=== PATIENT | female | born 1965 | race Caucasian/White ===

== ENCOUNTER 2018-08-14 15:19 | Emergency (ER) | payer BC, SELFPAY ==
[2018-08-14 15:25] VITALS: BP 151/90; PULSE 88; RESP 15; TEMP 36.6; O2SAT 98
--- NOTE | 2018-08-14 15:59 | ED.GENADUL_ITS ---
Discharge Plan Disposition Patient Disposition: HOME Condition: Good Discharge Details Chief Complaint: Laceration Clinical Impression: Laceration Primary Care Provider: Abdifatah Ritter ED Provider: Shaka Moreau Home Meds and New Rx's Prescriptions: New levofloxacin 750 mg tablet 750 mg PO DAILY Qty: 7 RF: 0 No Action losartan [Cozaar] 50 MG tablet 50 mg PO DAILY Qty: 90 RF: 3 amlodipine 5 MG tablet 5 mg PO DAILY Qty: 90 RF: 4 fvjumtaqecrt-hxmk-jptwh acid [Daily Multiple] 1 EACH tablet 1 tab-cap PO DAILY RF: 0 Discharge Instructions Instructions: Laceration (ED), Care For Your Absorbable Stitches (ED) Additional Instructions: If you notice any worsening of your symptoms, any pain in your tendons, pain in her joints, or any new symptoms such as vomiting, diarrhea, fever, chills, shortness of breath, chest pain, numbness, weakness, or fainting , please return immediately to the emergency department for reevaluation. If you noticed the pain in your tendons or joints please take stop taking the antibiotic and please do not perform any vigorous activity while on this antibiotic please follow up with your primary care provider as soon as possible for reassessment and reevaluation. As always, it was a pleasure participating in your medical care today. Referrals: Abdifatah Ritter, [Primary Care Provider] - Medical Decision Making This is a 52-year-old female who presents for laceration on her right foot just proximal to the webspace between the second and third digits. No evidence of tendon involvement normal movement, normal sensation, brisk capillary refill. No significant pain. The patient did have this laceration caused by a drill bit which was clean however it went through her shoe and her sock. No evidence of foreign body on exam under evaluation. I discussed with the patient potential x-rays for evaluation of foreign body, the patient does not want any additional x-rays or imaging at this time. She does assure me that it was a clean bit, no kassy parts, no other fragments. The patient's tetanus shot is up-to-date. The area was anesthetized with 2% lidocaine, 4 cc total. It was then irrigated with copious amounts of high-pressure saline, then scrubbed with chlorhexidine scrub. 3 simple interrupted sutures were placed, the patient tolerated this well. Because the bit went through a shoe and sock I do feel that antibiotics with gram-negative coverage are indicated for potential pseudomonas. Will start the patient on Levaquin. I had a long discussion with her regarding red flags which to return, including signs or symptoms concerning for tendon injury damage or pain secondary to the Levaquin. Patient understands. The absorbable sutures were placed, and will not need removal. We did recommend close follow-up with her PCP or the emergency department for wound reevaluation. I have extensively reviewed the treatment plan and discharge instructions with the patient. I have addressed all patient concerns at this time. The patient was made aware of what symptoms to monitor for that would warrant a return to the emergency department. Discussed the plan with the patient, they demonstrate verbal understanding and agreement with our assessment and plan at this time. Procedure: Suture Patient was positioned appropriately, 4cc lidocaine was used as a local anesthetic. Copious amounts of high-pressure normal saline were used for irrigation. Patient was sterile draped with wound exposed. 4-0 Vicryl were placed with 3 simple interrupted sutures were placed with good approximation. Wound dressed with <bacitracin/ sterile gauze>. Estimated Blood Loss: 0 ml The patient tolerated the procedure well and there were no complications. HPI General Date/Time Provider Initiated Documentation: 08/14/18 15:55 . HPI Narrative: This is a 52-year-old female with a past medical history of hypertension, and a past surgical history of a tubal ligation and cholecystectomy, who presents today for a laceration. Patient states that she was wearing a shoe, sock, when her dropped a very clean and unused drill bit down, it punctured through her shoe and sock, and lacerated the space between the second and third toe just proximal to the webspace. This is 30 minutes prior to arrival. She noticed a notable amount of bleeding, and she bled into her shoe and sock. She denies any significant numbness tingling or pain. Her tetanus is up-to-date from her last shot in 2012. She denies any allergies. She denies diabetes. She has no other complaints at this time. She denies any IV or illicit drug use. She denies any pertinent family history Related Data Home Medications Medication Instructions Recorded Confirmed amlodipine 5 mg PO DAILY #90 tab-cap 01/19/18 08/14/18 losartan [Cozaar] 50 mg PO DAILY #90 tab-cap 01/19/18 08/14/18 zkdcqmitdiun-[id number] acid 1 tab-cap PO DAILY tab-cap 06/15/18 08/14/18 [Daily Multiple Tablet] levofloxacin 750 mg PO DAILY #7 tab 08/14/18 Previous Rx's Medication Instructions Recorded amlodipine 5 mg PO DAILY #90 tab-cap 01/19/18 losartan [Cozaar] 50 mg PO DAILY #90 tab-cap 01/19/18 levofloxacin 750 mg PO DAILY #7 tab 08/14/18 Allergies Allergy/AdvReac Type Severity Reaction Status Date / Time benzonatate AdvReac Mild UPPER BODY Unverified 08/14/18 15:30 NUMBNESS lisinopril AdvReac Unknown COUGH Unverified 08/14/18 15:30 General Stated Complaint: Laceration MACK: 4 Review of Systems Review of Systems 10 point review of systems was performed, pertinent positives and negatives are noted in the history of present illness. PFSH Family History Mother Essential hypertension Father Heart disease Myocardial infarction Sister No problems noted. Grandfather Heart disease Grandfather Alcohol abuse Heart disease Grandmother Diabetes Heart disease Grandmother Osteoporosis Maternal Uncle Diabetes Maternal Aunt Diabetes Heart disease Brother Essential hypertension Brother No problems noted. Son Asthma Son Essential hypertension Medical History Abnormal Pap remote history Calculus of gallbladder with cholecystitis History of hypertension Social History Smoking/Tobacco Use Status: Former Tobacco Use Surgical History Bilateral salpingectomy with oophorectomy (~12/2002) Cervical Conization/LEEP Cholecystectomy (~1987) Endometrial Biopsy (06/15/14) Ligation of fallopian tube Exam Narrative Exam Narrative: 1.Const: Well-nourished, Well-developed, appearing stated age 2.Eyes: PERRL, no conjunctival injection, and symmetrical lids. 3.ENT: Atraumatic external nose and ears. Moist MM. Neck: Symmetric, trachea midline, No thyromegaly. 4.CVS: +S1/S2, No murmurs or gallops. Peripheral pulses 2+ and equal in all extremities. Brisk capillary refill in all extremities. 5.RESP: Unlabored respiratory effort. Clear to auscultation bilaterally. No wheezes rales or rhonchi 6.GI: Soft, Nontender/Nondistended, No hepatosplenomegaly. No guarding or rebound. 7.MSK: Normocephalic, Extremities w/o deformity or ttp No cyanosis or clubbing, Normal movement of all extremities. Normal flexion and extension of the toes, normal sensation, 2 point discrimination intact. Sensation intact for light touch and pinprick. No active bleeding. Capillary refill is brisk. 8.Skin: Warm, Dry. 1 cm linear laceration just proximal to the webspace of the 2 toes. No evidence of tendon involvement. Minimal swelling. No active bleeding. 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 Sensation grossly intact, no focal neurologic deficits. Please see musculoskeletal exam 10.Psych: (AAO) x3. Appropriate mood and affect Course Vital Signs Temperature 36.6 C 08/14/18 15:25 Pulse 88 08/14/18 15:25 Respiratory Rate 15 08/14/18 15:25 Blood Pressure 151/90 H 08/14/18 15:25 Pulse Oximetry 98 08/14/18 15:25 Temperature 36.6 C 08/14/18 15:25 Temperature Source Temporal Artery Scan 08/14/18 15:25 Pulse 88 08/14/18 15:25 Respiratory Rate 15 08/14/18 15:25 Respiratory Effort Non-Labored 08/14/18 15:29 Blood Pressure 151/90 H 08/14/18 15:25 Blood Pressure Position Sitting 08/14/18 15:25 Pulse Oximetry 98 08/14/18 15:25 Oxygen Delivery Method Room Air 08/14/18 15:25 Oxygen Flow Rate 0 08/14/18 15:25 Pain Level 1 08/14/18 15:25
[2018-08-14] MEDS: LEVOFLOXACIN 500 MG, LEVOFLOXACIN 250 MG 750 MG PO (16:07)
== END 2018-08-14 16:17 | disposition home or self-care (01) ==
LOC: ER 16:20
PROVIDERS: Emergency Provider Student in an Organized Health Care Education/Training Program; PCP Emergency Medicine
DX: S91.311A Laceration without foreign body, right foot, initial encounter (principal); W29.8XXA Contact with other powered hand tools and household machinery, initial encounter; I10 Essential (primary) hypertension
CPT/HCPCS: 12001; 99283

== ENCOUNTER 2018-12-13 12:39 | Outpatient (REF) | payer BC, SELFPAY | END 2018-12-13 12:59 | LOC: LBN 12:39 | PROVIDERS: PCP Emergency Medicine | DX: J02.9 Acute pharyngitis, unspecified (principal); R50.9 Fever, unspecified | CPT/HCPCS: 87449 ==

== ENCOUNTER 2018-12-15 11:26 | Emergency (ER) | payer BC, SELFPAY ==
--- NOTE | 2018-12-15 11:32 | W.ED.GENAD ---
Discharge Plan Disposition Patient Disposition: HOME Condition: Stable Discharge Details Chief Complaint: GenMedical Clinical Impression: Flu-like symptoms Primary Care Provider: Abdifatah Ritter ED Provider: Jaiden Albarran Home Meds and New Rx's Prescriptions: Continued oseltamivir [Tamiflu] 75 mg capsule 75 mg PO BID 5 Days Qty: 10 RF: 0 losartan [Cozaar] 50 MG tablet 50 mg PO DAILY Qty: 90 RF: 3 amlodipine 5 MG tablet 5 mg PO DAILY Qty: 90 RF: 4 Daily Multiple 1 EACH tablet 1 tab-cap PO DAILY RF: 0 Discharge Instructions Additional Instructions: After discussing risk and benefits or having a lumbar puncture you declined to have the procedure at this time Follow up with your primary care provider within a week especially if not improving you can take 1000mg tylenol and 600mg ibuprofen every 6 hours for pain as needed if you change your mind about the procedure, or you feel significant worsening pain or have persistent vomit return to the emergency department Medical Decision Making 53 yo female comes in from pcp's office with complaints of neck fullness and head fullness. She has been getting tamiflu since Thursday for influenza, her test was negative but had symptoms of fevers/chills, myalgias, mild headaches. since yesterday or so she describes a posterior neck pain/stiffness/fullness sensation as well as on the left side of her head. She is caox4, CN II-XII are intact, perrl, and normal gait and normal motor and sensation. Her pcp saw her in the offiice today and referred her here for an LP. She has no meningismus on exam. Could be viral encephalitis vs meningitis given her complaints though she has no fever or meningismus. I started to explain to her what an LP was, risks and such and she declines to have the procedure done at this time. 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 She understands she can return immediately if she changes her mind and would like the procedure done and also that she should return if she worsens in any way. She has no stridor, drooling or other findings to suggest rpa, plane captain, epiglotitis so do not feel neck imaging indicated at this time. Differential Diagnosis influenza, viral encephalitis, meningitis HPI General Mode of arrival: ambulatory. Date/Time Provider Initiated Documentation: 12/15/18 11:27. Limitations to Documentation: no limitations. Information obtained by: patient. History of Present Illness 53 year old F presents to the emergency department with the chief complaint of neck and headache pain, described as moderate, with intensity rated at 5. Quality is described as aching, and is localized to the head. No relieving factors improve symptom(s), No exacerbating factors reported . Patient did receive the following treatments prior to arrival, none Related Data Home Medications Medication Instructions Recorded Confirmed amlodipine 5 mg PO DAILY #90 tab-cap 01/19/18 12/15/18 losartan [Cozaar] 50 mg PO DAILY #90 tab-cap 01/19/18 12/15/18 Daily Multiple 1 tab-cap PO DAILY tab-cap 06/15/18 12/15/18 oseltamivir 75 mg capsule 75 mg PO BID 5 Days #10 cap 12/13/18 12/15/18 Previous Rx's Medication Instructions Recorded amlodipine 5 mg PO DAILY #90 tab-cap 01/19/18 losartan [Cozaar] 50 mg PO DAILY #90 tab-cap 01/19/18 oseltamivir 75 mg capsule 75 mg PO BID 5 Days #10 cap 12/13/18 Allergies Allergy/AdvReac Type Severity Reaction Status Date / Time benzonatate AdvReac Mild UPPER BODY Verified 12/15/18 11:45 NUMBNESS lisinopril AdvReac Unknown COUGH Verified 12/15/18 11:45 General MACK: 4 Review of Systems Review of Systems All systems reviewed & are unremarkable except as noted in HPI and below Constitutional Denies weakness ENT Denies change in voice Cardiovascular Denies chest pain and Denies dyspnea Respiratory Denies dyspnea Gastrointestinal Denies abdominal pain, Denies nausea and Denies vomiting Musculoskeletal Denies joint swelling Neurologic Denies weakness Endocrine Denies heat intolerance [facility] Medical History Encounter for screening colonoscopy (Acute) Spinal stenosis (Acute 09/25/08) Post-menopausal bleeding (Acute 06/07/14) Essential hypertension (Acute 09/20/13) Chest pain (Acute 09/25/08) Abnormal Pap remote history Calculus of gallbladder with cholecystitis History of hypertension Surgical History Bilateral salpingectomy with oophorectomy (~12/2002) Cervical Conization/LEEP Cholecystectomy (~1987) Endometrial Biopsy (06/15/14) Ligation of fallopian tube Family History Mother Essential hypertension Father Heart disease Myocardial infarction Sister No problems noted. Grandfather Heart disease Grandfather Alcohol abuse Heart disease Grandmother Diabetes Heart disease Grandmother Osteoporosis Maternal Uncle Diabetes Maternal Aunt Diabetes Heart disease Brother Essential hypertension Brother No problems noted. Son Asthma Son Essential hypertension Social History Smoking/Tobacco Use Status: Former Tobacco Use Exam Const General: no acute distress Orientation: alert HENMT Head: normal to inspection Ears: external ears normal General nose exam: external nose normal Mouth: moist mucous membranes Eyes General: appearance normal, both eyes and all related structures Neck Neck: normal visual inspection Resp Effort & Inspection: normal respiratory effort and able to speak in complete sentences Cardio Rate: regular rate Skin General skin exam: no rashes or lesions noted Neuro General: alert and oriented x3 Extrem General: normal to inspection Psych Mental Status: mental status grossly normal
[2018-12-15 11:35] VITALS: BP 166/95; PULSE 90; RESP 16; TEMP 37.3; O2SAT 98
--- NOTE | 2018-12-15 12:05 | ED.GENADUL_ITS ---
Discharge Plan Disposition Patient Disposition: HOME Condition: Stable Discharge Details Chief Complaint: GenMedical Clinical Impression: Flu-like symptoms Primary Care Provider: Abdifatah Ritter ED Provider: Jaiden Albarran Home Meds and New Rx's Prescriptions: Continued oseltamivir [Tamiflu] 75 mg capsule 75 mg PO BID 5 Days Qty: 10 RF: 0 losartan [Cozaar] 50 MG tablet 50 mg PO DAILY Qty: 90 RF: 3 amlodipine 5 MG tablet 5 mg PO DAILY Qty: 90 RF: 4 Daily Multiple 1 EACH tablet 1 tab-cap PO DAILY RF: 0 Discharge Instructions Additional Instructions: After discussing risk and benefits or having a lumbar puncture you declined to have the procedure at this time Follow up with your primary care provider within a week especially if not improving you can take 1000mg tylenol and 600mg ibuprofen every 6 hours for pain as needed if you change your mind about the procedure, or you feel significant worsening pain or have persistent vomit return to the emergency department Medical Decision Making 53 yo female comes in from pcp's office with complaints of neck fullness and head fullness. She has been getting tamiflu since Thursday for influenza, her test was negative but had symptoms of fevers/chills, myalgias, mild headaches. since yesterday or so she describes a posterior neck pain/stiffness/fullness sensation as well as on the left side of her head. She is caox4, CN II-XII are intact, perrl, and normal gait and normal motor and sensation. Her pcp saw her in the offiice today and referred her here for an LP. She has no meningismus on exam. Could be viral encephalitis vs meningitis given her complaints though she has no fever or meningismus. I started to explain to her what an LP was, risks and such and she declines to have the procedure done at this time. 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 She understands she can return immediately if she changes her mind and would like the procedure done and also that she should return if she worsens in any way. She has no stridor, drooling or other findings to suggest rpa, link trainer teacher, epiglotitis so do not feel neck imaging indicated at this time. Differential Diagnosis influenza, viral encephalitis, meningitis HPI General Mode of arrival: ambulatory . Date/Time Provider Initiated Documentation: 12/15/18 11:27 . Limitations to Documentation: no limitations . Information obtained by: patient . History of Present Illness 53 year old F presents to the emergency department with the chief complaint of neck and headache pain, described as moderate, with intensity rated at 5. Quality is described as aching, and is localized to the head. No relieving factors improve symptom(s), No exacerbating factors reported . Patient did receive the following treatments prior to arrival, none Related Data Home Medications Medication Instructions Recorded Confirmed amlodipine 5 mg PO DAILY #90 tab-cap 01/19/18 12/15/18 losartan [Cozaar] 50 mg PO DAILY #90 tab-cap 01/19/18 12/15/18 Daily Multiple 1 tab-cap PO DAILY tab-cap 06/15/18 12/15/18 oseltamivir 75 mg capsule 75 mg PO BID 5 Days #10 cap 12/13/18 12/15/18 Previous Rx's Medication Instructions Recorded amlodipine 5 mg PO DAILY #90 tab-cap 01/19/18 losartan [Cozaar] 50 mg PO DAILY #90 tab-cap 01/19/18 oseltamivir 75 mg capsule 75 mg PO BID 5 Days #10 cap 12/13/18 Allergies Allergy/AdvReac Type Severity Reaction Status Date / Time benzonatate AdvReac Mild UPPER BODY Verified 12/15/18 11:45 NUMBNESS lisinopril AdvReac Unknown COUGH Verified 12/15/18 11:45 General MACK: 4 Review of Systems Review of Systems All systems reviewed & are unremarkable except as noted in HPI and below Constitutional Denies weakness ENT Denies change in voice Cardiovascular Denies chest pain and Denies dyspnea Respiratory Denies dyspnea Gastrointestinal Denies abdominal pain, Denies nausea and Denies vomiting Musculoskeletal Denies joint swelling Neurologic Denies weakness Endocrine Denies heat intolerance [facility] Medical History Encounter for screening colonoscopy (Acute) Spinal stenosis (Acute 09/25/08) Post-menopausal bleeding (Acute 06/07/14) Essential hypertension (Acute 09/20/13) Chest pain (Acute 09/25/08) Abnormal Pap remote history Calculus of gallbladder with cholecystitis History of hypertension Surgical History Bilateral salpingectomy with oophorectomy (~12/2002) Cervical Conization/LEEP Cholecystectomy (~1987) Endometrial Biopsy (06/15/14) Ligation of fallopian tube Family History Mother Essential hypertension Father Heart disease Myocardial infarction Sister No problems noted. Grandfather Heart disease Grandfather Alcohol abuse Heart disease Grandmother Diabetes Heart disease Grandmother Osteoporosis Maternal Uncle Diabetes Maternal Aunt Diabetes Heart disease Brother Essential hypertension Brother No problems noted. Son Asthma Son Essential hypertension Social History Smoking/Tobacco Use Status: Former Tobacco Use Exam Const General: no acute distress Orientation: alert HENMT Head: normal to inspection Ears: external ears normal General nose exam: external nose normal Mouth: moist mucous membranes Eyes General: appearance normal, both eyes and all related structures Neck Neck: normal visual inspection Resp Effort & Inspection: normal respiratory effort and able to speak in complete sentences Cardio Rate: regular rate Skin General skin exam: no rashes or lesions noted Neuro General: alert and oriented x3 Extrem General: normal to inspection Psych Mental Status: mental status grossly normal
--- NOTE | 2018-12-15 12:20 | NUR.NOTE ---
after discussing sx with md and that the normal procedure for stated complaints is usually a LP. Patient decided that she did not want to go through with this. patient advised to return with worsening of sx or change of mind regarding the procedure.:
== END 2018-12-15 12:22 | disposition home or self-care (01) ==
PROVIDERS: Emergency Provider Emergency Medicine; PCP Emergency Medicine
DX: J11.89 Influenza due to unidentified influenza virus with other manifestations (principal); R51 Headache; M54.2 Cervicalgia
CPT/HCPCS: 99282

== ENCOUNTER 2019-09-02 08:07 | Outpatient (CLI) | payer BC, SELFPAY ==
[2019-09-02 09:00] LABS: Hemoglobin A1C 6.2 % (4.5-6.2)
[2019-09-02 10:05] LABS: Calculated LDL 120 mg/dL; Cholesterol 185 mg/dL (50-200); HDL Cholesterol 46 mg/dL (40-60); Triglyceride 97 mg/dL (30-150)
== END 2019-09-02 08:27 ==
PROVIDERS: PCP Emergency Medicine; Visit Provider Emergency Medicine
DX: Z00.00 Encounter for general adult medical examination without abnormal findings (principal); Z13.220 Encounter for screening for lipoid disorders; Z13.1 Encounter for screening for diabetes mellitus
CPT/HCPCS: 36415; 80061; 83036

== ENCOUNTER 2019-09-26 01:28 | Outpatient (CLI) | payer BC, SELFPAY ==
--- NOTE | 2019-09-26 10:53 | DI.MAMMO_ITS ---
EXAM: MG MAMMO SCREENING CLINICAL HISTORY: screening, Z12.39 TECHNIQUE: Mammograms were interpreted according to the usual protocol including computer analysis w [employer] CAD system, tomosynthesis and C-view imaging. COMPARISON: [id number] FINDINGS: The breasts are composed of scattered areas of fibroglandular density, breast density category B. Th ere are no suspicious masses or suspicious microcalcifications. There is no significant interval martins ge when compared with the previous images. IMPRESSION: Category 1, negative mammogram. Yearly screening mammography is recommended. BI-RADS Cat 1 - Negative Breast Density - Category B - Scattered areas of fibroglandular density
== END 2019-09-26 01:48 ==
PROVIDERS: PCP Emergency Medicine; Visit Provider Emergency Medicine
DX: Z12.31 Encounter for screening mammogram for malignant neoplasm of breast (principal)
CPT/HCPCS: 77063; 77067

== ENCOUNTER 2019-10-14 15:32 | Outpatient (CLI) | payer BC, SELFPAY ==
[2019-10-14 16:17] LABS: Hemoglobin A1C 6.1 % (4.5-6.2)
== END 2019-10-14 15:52 ==
PROVIDERS: PCP Emergency Medicine; Visit Provider Emergency Medicine
DX: E11.9 Type 2 diabetes mellitus without complications (principal)
CPT/HCPCS: 36415; 83036

== ENCOUNTER 2019-12-12 10:59 | Day surgery (SDC) | payer BC, SELFPAY ==
[2019-12-12 11:15] VITALS: BP 125/86; PULSE 90; RESP 18; TEMP 37.2; O2SAT 97
[2019-12-12] MEDS: Lactated Ringers 1,000 ML 80 ML IV (11:18)
--- NOTE | 2019-12-12 12:05 | BOWEL_PTH ---
PATIENT: Mary Victor LOC: [facility] U#:[id number] AGE/SX: 54/F ROOM: RE12/12/[address]: Donna Guallpa MD : [id number] BED: DIS: 12/12/2019 SPEC #: [id number] RECD: 12/12/19 17:27 STATUS: JORGE ALBERTO REQ #: [id number] VERONA: 12/12/19 12:[address]: Donna Guallpa DEPT: Surgical Specimen RECD BY: Kristin Wilkes ENTERED: 12/12/19 17:27 SP TYPE: Bowel OTHR DR: Abdifatah Ritter DO Tissues: 1 - BIOPSY BOWEL Procedures: GROSS AND MICRO LEVEL 4 Comments: [id number]
--- NOTE | 2019-12-12 12:27 | W.COLOREPORT ---
Date of service: 12/12/19 Time of Service: 11:55 Colonoscopy Report Date of procedure: 12/12/19 Pre-op diagnosis general: colon Cancer Screening Post-op diagnosis procedure note: other (? small polyp) Procedure: Colonoscopy with biopsy Surgeon: Donna Guallpa Anesthesia proc note operative: other (General/ ASA 2/ Mundo Landis CRNA) Estimated blood loss (mL): 3 Pathology: other (Cecal Polyp?) Complications: None Disposition: same day Indications: Presents to discuss her first screening colonoscopy. Missed last planned colonoscopy due to the flu. Had some constipation earlier this year that improved with adding a fiber supplement. After a bout of constipation noted a clot in her stool but this issue has resolved. No abdominal pain. No FH colon cancer or IBD. Prep: Miralax/Dulcolax Procedure Start Time: 11:55 Procedure End Time: 12:23 Retraction Time: 21 minutes Findings: ? a small polyp in the cecum right next to the Terminal ileum valve Procedure Description: After informed consent was obtained the patient was taken to the procedure room and placed in a left decubitous position. Monitors were applied and a time out was done. The patients name, date of , procedure, allergies to medications and metal in their body was reviewed. The patient was then sedated. Once sedated and comfortable a rectal exam was done. External exam was normal. Internal exam revealed a normal sphincter tone and no palpable masses. The scope was then introduced and retro-flexed. No internal hemorrhoids, polyps or masses were identified on retro-flexion. The scope was then advanced to the cecum without difficulty. The TI and appendiceal orifice were identified. The prep was adequate. The scope was then slowly retracted over 21 minutes back into the rectum. I saw a small area right next to the terminal ileum valve that looked like possibly a polyp. This was biopsied. There was no diverticulosis noted. The scope was removed and the patient was woken up and taken back to Same day surgery in stable condition. The patient tolerated the procedure well and there were no immediate complications. Follow up: Follow up will depend on pathology results
--- NOTE | 2019-12-12 12:32 | W.PM.DSUDISC ---
Discharge Plan Disposition Patient Disposition: HOME Condition: Good Discharge Details Attending Provider: Donna Guallpa Primary Care Provider: Abdifatah Ritter Home Meds and New Rx's Prescriptions: Continued losartan [Cozaar] 50 mg tablet 50 mg PO DAILY Qty: 90 RF: 3 amlodipine 5 mg tablet 5 mg PO DAILY Qty: 90 RF: 4 Discontinued polyethylene glycol 3350 17 gram/dose powder 238 g PO ONCE Qty: 238 RF: 0 bisacodyl 5 mg tablet,delayed release (DR/EC) 5 mg PO ONCE Qty: 4 RF: 0 Discharge Instructions Additional Instructions: Findings: ? a small polyp Follow up: depends on the pathology results Please call if you develop: fevers >101.5 Nausea or Vomiting Abdominal pain that is not transient DAY SURGERY UNIT POST ENDOSCOPY INSTRUCTIONS 1. Because there will be medication in your system for the next 24 hours, you may feel a little sleepy. Your coordination will be affected. Therefore: a. Do not drive or operate dangerous equipment for 24 hours. b. Do not drink alcohol beverages for 24 hours (not even beer). c. Plan to go home and rest for the day. 2. Generally there are no restrictions on your activity after a day or so has gone by, but you may feel a bit fatigued for a few days. 3 After you arrive home you may have a light meal and return to a normal diet as you can tolerate it without feeling sick to your stomach. 4. After surgery, you may feel pain or discomfort. This should be only transient, but if it persists please contact your doctor. 5. If there are any questions regarding the findings of your procedure, please feel free to contact your doctor. 6. If you are unable to contact your doctor with a problem, contact the hospital at [phone]. 7. Continue all your regular medications unless directed otherwise. I understand the above instructions and have no questions. Signature of Patient or Responsible Adult Escort Date/Time Name of Responsible Adult Escort Signature of Nurse Date/Time Activity:: Activity as Tolerated Diet:: As Tolerated Discharge Orders Discharge Orders: Discharge Order (Routine); Ordered 12/12/19 Ordered By: Donna Guallpa
[2019-12-12 12:50] VITALS: BP 105/63; PULSE 70; RESP 18; TEMP 36; O2SAT 98
== END 2019-12-12 13:03 | disposition home or self-care (01) ==
PROVIDERS: PCP Emergency Medicine; Visit Provider Surgery
PROC: 0DJD8ZZ Inspection of Lower Intestinal Tract, Via Natural or Artificial Opening Endoscopic (ICD-10-PCS; CPT 45378; principal; 2019-12-12 12:30)
DX: Z12.11 Encounter for screening for malignant neoplasm of colon (principal); K63.5 Polyp of colon; I10 Essential (primary) hypertension
CPT/HCPCS: 45380; 88305; J2704

== ENCOUNTER 2020-10-23 17:43 | Outpatient (REF) | payer BC, SELFPAY ==
[2020-10-23 14:13] LABS: Hemoglobin A1C 6.1 % (<5.7)
== END 2020-10-23 18:03 ==
LOC: LBN 17:43
PROVIDERS: PCP Emergency Medicine; Visit Provider Emergency Medicine
DX: R73.9 Hyperglycemia, unspecified (principal)
CPT/HCPCS: 83036

== ENCOUNTER 2021-03-27 11:39 | Outpatient (CLI) | payer BC, SELFPAY ==
[2021-03-27 12:41] LABS: HCT 39.5 % (36.0-46.0); HGB 13.1 g/dL (11.2-15.7); MCH 28.4 pg (27.0-33.0); MCHC 33.2 % (32.0-36.0); MCV 85.7 fL (80-95); MPV 9.4 fL (8.0-11.0); Platelet Count 319 10^3/uL (130-400); RBC 4.61 10^6/uL (3.93-5.22); RDW 11.9 % (11.7-14.6); RDW-SD 37.2 fL; WBC 7.85 10^3/uL (4.4-10.8)
[2021-03-27 13:04] LABS: ALT 30 U/L (14-59); AST 16 U/L (15-37); Alkaline Phosphatase 90 U/L (46-116); Amylase 46 U/L (25-115); Anion Gap 9.2 mmol/L (3-11); BUN 18 mg/dL (7-18); Bilirubin, Total 0.3 mg/dL (0.2-1.0); CO2 27.8 mmol/L (21.0-32.0); CREATININE 0.9 mg/dL (0.55-1.02); Calcium 9.3 mg/dL (8.5-10.1); Chloride 104 mmol/L (98-107); Glucose 96 mg/dL (74-106); Lipase 95 U/L (73-393); Potassium 4.1 mmol/L (3.5-5.1); Sodium 141 mmol/L (136-145); Total Protein 7.4 g/dL (6.4-8.2)
== END 2021-03-27 11:40 | disposition home or self-care (01) ==
LOC: LOS 11:39
PROVIDERS: PCP Emergency Medicine; Visit Provider Emergency Medicine
DX: R10.13 Epigastric pain (principal); K85.90 Acute pancreatitis without necrosis or infection, unspecified
CPT/HCPCS: 36415; 80053; 83690; 85027; 82150

== ENCOUNTER 2021-10-28 17:50 | Outpatient (REF) | payer SELFPAY ==
[2021-10-29 03:04] LABS: COVID-19 RT-PCR UVMMC Result Negative (Negative)
== END 2021-10-28 17:51 | disposition home or self-care (01) ==
LOC: NCHCN 17:50
PROVIDERS: PCP Emergency Medicine; Visit Provider Internal Medicine
DX: Z20.822 Contact with and (suspected) exposure to COVID-19 (principal); J06.9 Acute upper respiratory infection, unspecified
CPT/HCPCS: U0003

== ENCOUNTER 2022-03-27 02:21 | Outpatient (CLI) | payer OTHER, SELFPAY ==
--- NOTE | 2022-03-27 07:53 | DI.MAMMO_ITS ---
Exam(s) MAMMO SCREENING EXAM: MAMMO SCREENING CLINICAL HISTORY: screening,z12.39 TECHNIQUE: Mammograms were interpreted according to the usual protocol including computer analysis w [employer] CAD system, tomosynthesis and C-view imaging. COMPARISON: FINDINGS: The breasts are of moderate density with fairly symmetrical distribution of fibroglandular tissue. N o dominant mass or clumped microcalcification is identified in either breast. Current examination is compared with previous examinations including September 2019 and there has been no gross interval elizabeth nge in appearance in comparison with the prior studies. IMPRESSION: No specific evidence of malignancy at this time. Routine screening examinations are suggested at yea rly intervals in this age group according to the ACS ACR guidelines. BI-RADS Category 1 - Negative Breast Density - Category B - Scattered areas of fibroglandular density
== END 2022-03-27 02:41 ==
PROVIDERS: Visit Provider Family Medicine
DX: Z12.31 Encounter for screening mammogram for malignant neoplasm of breast (principal)
CPT/HCPCS: 77063; 77067

== ENCOUNTER 2022-09-09 03:39 | Outpatient (CLI) | payer OTHER, SELFPAY ==
[2022-09-09 12:54] LABS: Hemoglobin A1C 6.4 % (<5.7)
[2022-09-09 13:18] LABS: Anion Gap 11.3 mmol/L (3-11); BUN 20 mg/dL (7-18); CO2 24.7 mmol/L (21.0-32.0); CREATININE 0.8 mg/dL (0.55-1.02); Calcium 9.7 mg/dL (8.5-10.1); Calculated LDL 116 mg/dL (<100); Chloride 100 mmol/L (98-107); Cholesterol 191 mg/dL (<200); Estimated GFR 86.96 (mL/min/1.73m2); Glucose 115 mg/dL (74-106); HDL Cholesterol 52 mg/dL (40-60); Potassium 4.3 mmol/L (3.5-5.1); Sodium 136 mmol/L (136-145); Triglyceride 116 mg/dL (<150)
[2022-09-10 09:22] LABS: HIV-1/2 Ag & Ab Screen Negative (Negative)
[2022-09-10 09:25] LABS: Hepatitis C Ab w Rflx HCV PCR Negative (Negative)
== END 2022-09-09 03:40 | disposition home or self-care (01) ==
PROVIDERS: Visit Provider Family Medicine
DX: I10 Essential (primary) hypertension (principal); R73.09 Other abnormal glucose; Z11.4 Encounter for screening for human immunodeficiency virus [HIV]; Z11.59 Encounter for screening for other viral diseases
CPT/HCPCS: 36415; 80048; 80061; 86803; 87389; 83036

== ENCOUNTER 2022-09-15 10:35 | Outpatient (REF) | payer OTHER, SELFPAY ==
[2022-09-15 13:42] LABS: Bilirubin Negative (Negative); Blood Moderate (Negative); Clarity Sl Cloudy (Clear); Glucose Negative (Negative); Ketones Negative (Negative); Leukocyte Esterase Moderate (Negative); Nitrite Negative (Negative); Specific Gravity 1.015 (1.005-1.025); Urobilinogen 0.2 EU/dL (Up TO 0.2)
[2022-09-15 13:56] LABS: Bacteria Few HPF (Negative); C & S Indicated? Yes; Casts Negative LPF (Negative); Crystals Negative HPF (Negative); Epithelial Cells Few HPF (Negative); Mucus Negative (Negative)
== END 2022-09-15 10:36 | disposition home or self-care (01) ==
LOC: LBN 10:35
PROVIDERS: Visit Provider Physician Assistant
DX: R39.89 Other symptoms and signs involving the genitourinary system (principal)
CPT/HCPCS: 81003; 81015; 87086

== ENCOUNTER 2022-12-25 03:25 | Outpatient (CLI) | payer BC, SELFPAY ==
[2022-12-25 11:43] LABS: HCT 44.1 % (36.0-46.0); HGB 14.3 g/dL (11.2-15.7); MCHC 32.4 % (32.0-36.0); MCV 86 fL (80-95); MPV 9.1 fL (8.0-11.0); Platelet Count 318 10^3/uL (130-400); RBC 5.11 10^6/uL (3.93-5.22); RDW-SD 38.3 fL; WBC 8.34 10^3/uL (4.4-10.8)
[2022-12-25 11:52] LABS: Hemoglobin A1C 6.2 % (<5.7)
[2022-12-25 12:07] LABS: ALT 41 U/L (14-59); AST 24 U/L (15-37); Albumin 4.4 g/dL (3.4-5.0); Alkaline Phosphatase 88 U/L (46-116); Anion Gap 6.2 mmol/L (3-11); BUN 15 mg/dL (7-18); Bilirubin, Total 0.3 mg/dL (0.2-1.0); CO2 28.8 mmol/L (21.0-32.0); CREATININE 0.8 mg/dL (0.55-1.02); Calcium 9.4 mg/dL (8.5-10.1); Calculated LDL 141 mg/dL (<100); Chloride 102 mmol/L (98-107); Cholesterol 224 mg/dL (<200); Estimated GFR 86.42 (mL/min/1.73m2); Glucose 106 mg/dL (74-106); HDL Cholesterol 58 mg/dL (40-60); Sodium 137 mmol/L (136-145); Total Protein 8.1 g/dL (6.4-8.2); Triglyceride 126 mg/dL (<150)
== END 2022-12-25 03:26 | disposition home or self-care (01) ==
PROVIDERS: PCP Nurse Practitioner Family; Visit Provider Nurse Practitioner Family
DX: E66.9 Obesity, unspecified (principal); E78.5 Hyperlipidemia, unspecified; I10 Essential (primary) hypertension; R73.03 Prediabetes; Z00.00 Encounter for general adult medical examination without abnormal findings; Z78.0 Asymptomatic menopausal state
CPT/HCPCS: 36415; 80053; 80061; 85027; 83036

== ENCOUNTER 2023-03-31 01:27 | Outpatient (CLI) | payer BC, SELFPAY ==
--- NOTE | 2023-03-31 07:46 | DI.MAMMO_ITS ---
Exam(s) MAMMO SCREENING EXAM: MAMMO SCREENING CLINICAL HISTORY: screening,z12.39. TECHNIQUE: Bilateral full field digital CC and MLO mammographic images were obtained with 3D tomosyn thesis and utilizing computer aided detection (CAD). COMPARISON: Prior mammograms were reviewed. FINDINGS: There has been no significant change in the appearance and distribution of the fibroglandular tissue. No CAD designations. There are no new spiculated masses nor malignant appearing microcalcification groups. Small nodular density in left breast is unchanged from all prior. There is no significant architectural distortion nor skin thickening-retraction. IMPRESSION: No radiographic evidence of malignancy. BI-RADS Category 1 - Negative Breast Density - Category B - Scattered areas of fibroglandular density Breast density Category C or D implies that the patient has dense breast tissue. Dense breast tissue can make it harder to find cancer on a mammogram. Dense breast tissue is also associated with an incr eased risk of breast cancer. This information about the result of the mammogram report was provided to the patient to raise their awareness. Use this report when you speak with the patient about their risks for breast cancer, which includes their family history. At that time, you may recommend additional screening tests (Ultrasoun d or MRI) as these tests may add significant information. A negative radiographic report should not delay biopsy if a dominant or clinically suspicious mass is present. Up to ten percent of cancers are not identified on mammography. A negative report may reinforce clinical impression. Adenosis and dense breasts may obscure an underlying neoplasm. False positive reports average 6 to 10%. Patient will receive a letter notifying them of these results.
== END 2023-03-31 01:47 ==
LOC: DI 01:28
PROVIDERS: PCP Nurse Practitioner Family; Visit Provider Nurse Practitioner Family
DX: Z12.31 Encounter for screening mammogram for malignant neoplasm of breast (principal)
CPT/HCPCS: 77063; 77067

== ENCOUNTER 2024-01-28 03:30 | Outpatient (CLI) | payer BC, SELFPAY ==
[2024-01-28 07:47] LABS: HCT 40.8 % (36.0-46.0); HGB 13.5 g/dL (11.2-15.7); MCH 28.4 pg (27.0-33.0); MCHC 33.1 % (32.0-36.0); MCV 86 fL (80-95); Platelet Count 276 10^3/uL (130-400); RBC 4.76 10^6/uL (3.93-5.22); RDW 12.1 % (11.7-14.6); RDW-SD 37.9 fL; WBC 8.04 10^3/uL (4.4-10.8)
[2024-01-28 08:11] LABS: ALT 36 U/L (14-59); AST 19 U/L (15-37); Albumin 3.9 g/dL (3.4-5.0); Alkaline Phosphatase 80 U/L (46-116); Anion Gap 9.1 mmol/L (3-11); BUN 16 mg/dL (7-18); Bilirubin, Total 0.3 mg/dL (0.2-1.0); CO2 26.9 mmol/L (21.0-32.0); CREATININE 0.9 mg/dL (0.55-1.02); Calcium 9.3 mg/dL (8.5-10.1); Calculated LDL 108 mg/dL (<100); Chloride 105 mmol/L (98-107); Cholesterol 186 mg/dL (<200); Estimated GFR 74.57 (mL/min/1.73m2); Glucose 117 mg/dL (74-106); HDL Cholesterol 56 mg/dL (40-60); Potassium 4.1 mmol/L (3.5-5.1); Sodium 141 mmol/L (136-145); TSH (W/Ref FT4) 2.12 uIU/mL (0.36-3.74); Total Protein 7.7 g/dL (6.4-8.2); Triglyceride 110 mg/dL (<150)
== END 2024-01-28 03:31 | disposition home or self-care (01) ==
PROVIDERS: PCP Nurse Practitioner Family; Visit Provider Nurse Practitioner Family
DX: Z00.00 Encounter for general adult medical examination without abnormal findings (principal); E78.5 Hyperlipidemia, unspecified; R73.03 Prediabetes; E66.9 Obesity, unspecified; I10 Essential (primary) hypertension; R87.619 Unspecified abnormal cytological findings in specimens from cervix uteri; R07.9 Chest pain, unspecified
CPT/HCPCS: 36415; 80053; 80061; 85027; 83036; 84443

== ENCOUNTER 2024-02-01 14:26 | Outpatient (REF) | payer BC, SELFPAY ==
--- NOTE | 2024-02-01 13:30 | PAPFT_PTH ---
PATIENT: Mary Victor LOC: [facility] U#:[id number] AGE/SX: 58/F ROOM: RE02/01/[address]: Cata Albarran NP : 1965 BED: DIS: 02/01/2024 SPEC #: [id number] RECD: 02/01/24 18:12 STATUS: ALFREDAdelaida RENu #: [id number] VERONA: 02/01/24 13:[address]: Cata Albarran NP DEPT: [facility] Cytology RECD BY: Kristin Wilkes ENTERED: 02/01/24 18:13 SP TYPE: PAPFT OTHR DR: Heather Ricardo NP Tissues: 1 - CX/ENDOCX FOR PAP SMEARS Procedures: PAP THIN PREP/[facility] Screening HPV DNA PROBE Comments: [id number]
== END 2024-02-01 14:27 | disposition home or self-care (01) ==
LOC: LBN 14:26
PROVIDERS: PCP Nurse Practitioner Family; Visit Provider Nurse Practitioner Women's Health
DX: Z12.4 Encounter for screening for malignant neoplasm of cervix (principal); Z11.51 Encounter for screening for human papillomavirus (HPV)
CPT/HCPCS: 88142; 87624

== ENCOUNTER 2024-09-06 01:35 | Outpatient (CLI) | payer BC, SELFPAY ==
--- NOTE | 2024-09-06 07:50 | DI.MAMMO_ITS ---
Exam(s) MAMMO SCREENING EXAM: MAMMO SCREENING CLINICAL HISTORY: screening,Z12.39 TECHNIQUE: Bilateral full field digital CC and MLO mammographic images were obtained with 3D tomosyn thesis and utilizing computer aided detection (CAD). COMPARISON: Available for comparison. FINDINGS: Masses/Architectural Distortion: No new nodules. No areas of architectural distortion are seen. The re is no change in the well-circumscribed small nodule in the upper outer left breast. Microcalcifications: No suspicious pleomorphic-type are seen. Skin Thickening/Nipple Retraction: None. IMPRESSION: 1. No significant interval change with no specific features of malignancy noted. 2. Unless there is more urgent need, screening mammography is recommended, as per [place] guidelines. BI-RADS Category 1 - Negative Breast Density - Category B - Scattered areas of fibroglandular density Breast density category C or D implies that the patient has dense breast tissue. Dense breast tissue is very common and is not abnormal but dense breast tissue can make it harder to find cancer on a ma mmogram. Also, dense breast tissue may increase their breast cancer risk. This information about the result of the mammogram report was provided to the patient to raise their awareness. Use this report when you speak with the patient about their risks for breast cancer, which includes their family hist ory. At that time, you may recommend for more screening tests (Ultrasound or MRI) as they might be us eful based on their risk. A negative radiographic report should not delay biopsy if a dominant or clinically suspicious mass is present. Up to ten percent of cancers are not identified on mammography. A negative report may reinforce clinical impression. Adenosis and dense breasts may obscure an underlying neoplasm. False positive reports average 6 to 10%. Patient will receive a letter notifying them of these results.
== END 2024-09-06 01:55 ==
PROVIDERS: PCP Nurse Practitioner Family; Visit Provider Nurse Practitioner Women's Health
DX: Z12.31 Encounter for screening mammogram for malignant neoplasm of breast (principal)
CPT/HCPCS: 77063; 77067

== ENCOUNTER 2024-09-14 18:33 | Outpatient (REF) | payer BC, SELFPAY ==
--- OUTSIDE RECORDS SUMMARY | 2024-09-14 18:37 | XMS_ITS | Encounter Summary ---
Author Organization [facility] Address [address] [place] [address] Care Team Providers Care Plant Health Manager Name Role Phone Abdifatah Ritetr DO Primary Care Provider [phone]- [phone] Encounter Details Date Type Department Care Team (Late st Contact Info) Description 10/28/2021 Lab Requisition [facility] Pathology & Laboratory Medicine - [address] [address] Outr Resulting Lab, Provider Social History Tobacco Use Types Packs/Day Years Used Date Smoking Tobacco: Never Assessed Interpersonal Safety Answer Date Record ed Physically Hurt Never 06/24/2020 Verbally Threaten Not on file 06/24/2020 Sex and Gender Information Value Date Recorded Sex Assigned at Not on file Gender Identity Not on file Sexual Orientation Not on file documented as of this encounter Plan of Treatment Not on file documented as of this encounter Procedures Procedure Name Priority Date/Time Associated Diagnosis Comments ZZCOVID-19 TEST [facility] PCR Today 10/28/2021 9:20 EST COVID-19 TESTING Routine 10/28/2021 9:20 EST documented in this encounter Results * COVID-19 TEST [facility] PCR (10/28/2021 9:20 EST) Swab 10/28/2021 9:20 EST 10/28/2021 21:53 EST Provider Outr Resulting Lab MICROBIOLOGY - GENERAL ORDERABLES [facility] [address] [place] [address] * COVID-19 TESTING (10/28/2021 9:20 EST) COVID-19 rt-PCR Result Negative Negative 10/29/2021 3:00 EST [facility] Comment: This test has not been FDA cleared or approved. This test has been authorized by FDA under an EUA for use by authorized laboratories. This test has been authorized only for detection of nucleic acid from 2019-nCoV, not for any other viruses or pathogens. This test is only authorized for the duration of the declaration that circumstances exist justifying the authorization of emergency use of in vitro diagnostic tests for detection and/or diagnosis of 2019-nCoV under section 564(b)(1) of Act, 21 U.S.C ?? 360bbb-3(b) (1), unless the authorization is terminated or revoked sooner. Negative results do not preclude 2019-nCoV infection and should not be used as the sole basis for treatment or other patient management decisions. Negative results must be combined with clinical observations, patient history, and epidemiological information. Performed on the [employer] Fusion instrument Performing Lab [place] [facility] 10/29/2021 3:00 EST [facility] Swab 10/28/2021 9:20 EST 10/28/2021 21:53 EST Provider Outr Resulting Lab MICROBIOLOGY - GENERAL ORDERABLES [facility] [address] [place] [address] documented in this encounter Visit Diagnoses Not on filedocumented in this encounter Care Teams Plant Health Manager Relationship Specialty Start Date End Date Abdifatah Ritter DO [address] [place] [address] PCP - General 07/09/17 documented as of this encounter
--- OUTSIDE RECORDS SUMMARY | 2024-09-14 18:37 | XMS_ITS | Encounter Summary ---
Author Organization [facility] Address [address] [place] [address] Care Team Providers Care Production Associate Name Role Phone Abdifatah Ritter DO Primary Care Provider +1- [phone] Encounter Details Date Type Department Care Team (Late st Contact Info) Description 09/09/2022 Lab Requisition [facility] Pathology & Laboratory Medicine - [address] [id number] Outr Resulting Lab, Provider Social History Tobacco [...] Procedure Name Priority Date/Time Associated Diagnosis Comments HEPATITIS C AB W REFLEX TO HCV RNA BY PCR Routine 09/09/2022 12:27 EDT documented in this encounter Results * HEPATITIS C AB W REFLEX TO HCV RNA BY PCR (09/09/2022 12:27 EDT) Hep C Antibody Negative Negative 09/10/2022 9:21 EDT [facility] Blood VENOUS BLOOD / Unknown 09/09/2022 12:27 EDT 09/09/2022 21:47 EDT Provider Outr Resulting Lab CHEMISTRY & BLOOD GAS ORDERABLES [facility] [address] [place] [address] documented in this encounter Visit Diagnoses Not on filedocumented in this encounter Care Teams Production Associate Relationship Specialty Start Date End Date Abdifatah Ritter DO [address] [place] [address] PCP - General 07/09/17 documented as of this encounter
--- OUTSIDE RECORDS SUMMARY | 2024-09-14 18:37 | XMS_ITS | Encounter Summary ---
Author Organization [facility] Address [address] [place] [address] Care Team Providers Care Slip Caster Name Role Phone Unavailable Primary Care Provider Unavailabl e Encounter Details Date Type Department Care Team (Late st Contact Info) Description 12/13/2002 Results Only [facility] - [facility] [address] [place] [address] Rafy Connell MD [address] [place], [place] [id number] Social History Tobacco Use Types Packs/Day Years Used Date Smoking Tobacco: Never Assessed Sex and Gender Information Value Date Recorded Sex Assigned at Not on file Gender Identity Not on file Sexual Orientation Not on file documented as of this encounter Plan of Treatment Not on file documented as of this encounter Procedures Procedure Name Priority Date/Time Associated Diagnosis Comments CYTOPATHOLOGY Routine 12/13/2002 0:00 EST documented in this encounter Results * CYTOPATHOLOGY (12/13/2002 0:00 EST) Pathology Report: CYTOPATHOLOGY REPORT Reports generated via electronic interface contain original data; however they are lacking the format of the original report. Caution should be taken when reading/interpreti ng unformatted reports. Name: ? AUNG RUIZ ? Accession #: ? [id number] : ? 1965 (Age: 37) ??F ?Collect Date: ? 12/13/2002 Location: ? [facility] ? Receive Date: ? 12/15/2002 Provider: ?RAFY CONNELL MD Copy to: ? Specimen/Source: ?ThinPrep Pap Test, Cervix/Endocervix Last Menstrual Period: ? 12/01/02 Hormonal/Contracep tive Status: ? Yes: BC patch Treatment History: ? Miscellaneous treatment: 05/04/01 endocervical curettage Other: ? Additional clinical information: 01/04/01 WNL ? SPECIMEN ADEQUACY ? Satisfactory for Evaluation - transformation zone component present GENERAL CATEGORIZATION ? Negative for Intraepithelial Lesion or Malignancy ? Document reviewed and electronically signed by: ? Bryson Skelton, LUANN(ASCP) ? Report Date: ??12/19/2002 07:46 End of Report [facility] 12/13/2002 12/15/2002 Rafy Connell MD PATHOLOGY ORDERABLES Performing Organization Address City/State/[facility] Co de Phone Number [facility] [address] [place] [address] documented in this encounter Visit Diagnoses Not on filedocumented in this encounter
--- OUTSIDE RECORDS SUMMARY | 2024-09-14 18:37 | XMS_ITS | Encounter Summary ---
Author Organization [facility] Address [address] [place] [address] Care Team Providers Care Power Mule Operator Name Role Phone Unavailable Primary Care Provider Unavailabl e Encounter Details Date Type Department Care Team (Late st Contact Info) Description 11/08/2004 Results Only [facility] - Maple conversion [address] [place] [address] Christina Limon, [facility] [address] [place] [address] [place] [address] Social History Tobacco Use Types Packs/Day Years Used Date Smoking Tobacco: Never Assessed Sex and Gender Information Value Date Recorded Sex Assigned at Not on file Gender Identity Not on file Sexual Orientation Not on file documented as of this encounter Plan of Treatment Not on file documented as of this encounter Procedures Procedure Name Priority Date/Time Associated Diagnosis Comments CYTOPATHOLOGY Routine 11/08/2004 0:00 EST documented in this encounter Results * CYTOPATHOLOGY (11/08/2004 0:00 EST) Pathology Report: CYTOPATHOLOGY REPORT Reports generated via electronic interface contain original data; however they are lacking the format of the original report. Caution should be taken when reading/interpreti ng unformatted reports. Name: ? AUNG RUIZ ? Accession #: ? [id number] : ? 1965 (Age: 38) ??F ?Collect Date: ? 11/08/2004 Location: ? [facility] ? Receive Date: ? 11/12/2004 Provider: ?CHRISTINA LIMON MANUFACTURING ENGINEERING PROFESSOR Copy to: ? Specimen/Source: ?ThinPrep Pap Test, Cervix/Endocervix Last Menstrual Period: ? 10/28/04 Treatment History: ? Miscellaneous treatment: 05/04/01 misc treatment for endo curret., 01/09/03 endo curret. Other: ? Additional clinical information: Pap 12/13/02 nl. HPVA - HPV testing requested if ASC-US on the current ThinPrep Pap test. ? SPECIMEN ADEQUACY ? Satisfactory for Evaluation - transformation zone component absent GENERAL CATEGORIZATION ? Negative for Intraepithelial Lesion or Malignancy ? Document reviewed and electronically signed by: ? LUANN Denis(ASCP) ? Report Date: ??11/19/2004 12:44 End of Report [facility] 11/08/2004 11/12/2004 Christina Limon MANUFACTURING ENGINEERING PROFESSOR PATHOLOGY ORDERABLES [facility] [address] [place] [address] documented in this encounter Visit Diagnoses Not on filedocumented in this encounter
--- OUTSIDE RECORDS SUMMARY | 2024-09-14 18:37 | XMS_ITS | Encounter Summary ---
Author Organization [facility] Address [address] [place] [address] Care Team Providers Care Pourer Bull Ladle Name Role Phone Unavailable Primary Care Provider Unavailabl e Encounter Details Date Type Department Care Team (Late st Contact Info) Description 01/16/2014 Results Only [facility] Laboratory Services - [facility] [address] [place] [id number] Leidy Calles, SOM Social History Tobacco Use Types Packs/Day Years Used Date Smoking Tobacco: Never Assessed Sex and Gender Information Value Date Recorded Sex Assigned at Not on file Gender Identity Not on file Sexual Orientation Not on file documented as of this encounter Plan of Treatment Not on file documented as of this encounter Procedures Procedure Name Priority Date/Time Associated Diagnosis Comments PAP TEST- RESULT ONLY Routine 01/16/2014 0:00 EST documented in this encounter Results * PAP TEST- RESULT ONLY (01/16/2014 0:00 EST) Pathology Report: CYTOPATHOLOGY REPORT Reports generated via electronic interface contain original data; however they are lacking the format of the original report. Caution should be taken when reading/interpreti ng unformatted reports. Name: ? AUNG RUIZ ? Accession #: ? [id number] ? : ? 1965 (Age: 48) ??F ?Collect Date: ? 01/16/2014 ? Location: ? [facility] ? Receive Date: ? 01/17/2014 ? Provider: LEIDY CALLES SCENIC DESIGNER Copy to: BETI RAZA DO ? Final Report SPECIMEN ADEQUACY ? Satisfactory for Evaluation - transformation zone component absent GENERAL CATEGORIZATION ? Negative for Intraepithelial Lesion or Malignancy ?? Last Menstrual Period: 2009 Treatment History: Cone biopsy Other: Additional clinical information: last pap 07/16/09 WNL with -HPV, remote PHx ? 1992, no records available paps/HPV neg/neg since Specimen/Source: ??Pap Test, Cervix/Endocervix, ThinPrep Imaging System with manual evaluation Document reviewed and electronically signed by: ? Radha Silva, CT(ASCP)(IAC) ? Report ??Date: 01/24/2014 13:35 HPV with Pap Test ? Date Ordered: ? 01/24/2014 ? Status: ?? Signed Out ?Date Complete: ? 01/25/2014 ? By: ??System Interface ? Date Reported: ? 01/25/2014 ? Interpretation RESULT: Negative for HPV. No E6 or E7 mRNA is detected from HPV types 16,18,31,33,35, 39,45,51,52,56,58, 59,66, and 68 by welding robot operator mediated amplification. Comments Document reviewed and electronically signed by: ? System Interface ? Report date: 01/25/2014 By the signature above, the attending physician certifies that he/she has personally conducted a gross and/or microscopic examination of the described specimens and rendered or confirmed the above diagnosis. End of Report [facility] 01/16/2014 01/17/2014 Leidy Calles NP PATHOLOGY ORDERABLES Performing Organization Address City/State/[facility] Co ar Phone Number [facility] [address] [place] [address] documented in this encounter Visit Diagnoses Not on filedocumented in this encounter
--- OUTSIDE RECORDS SUMMARY | 2024-09-14 18:37 | XMS_ITS | Encounter Summary ---
Author Organization [facility] Address [address] [place] [address] Care Team Providers Care Lab Systems Analyst Name Role Phone Unavailable Primary Care Provider Unavailabl e Encounter Details Date Type Department Care Team (Late st Contact Info) Description 01/04/2001 Results Only [facility] - Maple conversion [address] [place] [address] Leidy Calles, SOM Social History Tobacco Use [...] Priority Date/Time Associated Diagnosis Comments CYTOPATHOLOGY Routine 01/04/2001 0:00 EST documented in this encounter Results * CYTOPATHOLOGY (01/04/2001 0:00 EST) Pathology Report: CYTOPATHOLOGY REPORT Reports generated via electronic interface contain original data; however they are lacking the format of the original report. Caution should be taken when reading/interpreti ng unformatted reports. Name: ? AUNG RUIZ ? Accession #: ? [id number] : ? 1965 (Age: 35) ??F ?Collect Date: ? 01/04/2001 Location: ? [facility] ? Receive Date: ? 01/05/2001 Provider: ?LEIDY CALLES EXTRUSION FORMER Copy to: ? Specimen/Source: ?ThinPrep Pap Test, Cervix/Endocervix Last Menstrual Period: ? 12/20/00 Hormonal/Contracep tive Status: ? Oral contraceptives Previous Gynecologic Pathology: ? LSIL: 1991 No T Zone Treatment History: ? Cone biopsy ? SPECIMEN ADEQUACY ? Satisfactory for evaluation but limited by an absence of a transformation zone component. GENERAL CATEGORIZATION ? Within Normal Limits ? Document reviewed and electronically signed by: ? LUANN Bai(ASCP) ? Report Date: ??01/06/2001 08:16 End of Report [facility] 01/04/2001 01/05/2001 Leidy Calles NP PATHOLOGY ORDERABLES [facility] [address] [place] [address] documented in this encounter Visit Diagnoses Not on filedocumented in this encounter
--- OUTSIDE RECORDS SUMMARY | 2024-09-14 18:37 | XMS_ITS | Encounter Summary ---
Author Organization [facility] Address [address] [place] [address] Care Team Providers Care Shellfish Harvester Name Role Phone Unavailable Primary Care Provider Unavailabl e Encounter Details Date Type Department Care Team (Late st Contact Info) Description 05/04/2001 Results Only [facility] - Maple conversion [address] [place] [address] Rafy Connell MD [address] [place], [place] [address] Social History Tobacco Use Types Packs/Day Years Used Date Smoking Tobacco: Never Assessed Sex and Gender Information Value Date Recorded Sex Assigned at Not on file Gender Identity Not on file Sexual Orientation Not on file documented as of this encounter Plan of Treatment Not on file documented as of this encounter Procedures Procedure Name Priority Date/Time Associated Diagnosis Comments SURGICAL PATHOLOGY Routine 05/04/2001 0:00 EDT documented in this encounter Results * SURGICAL PATHOLOGY (05/04/2001 0:00 EDT) Pathology Report: SURGICAL PATHOLOGY REPORT Reports generated via electronic interface contain original data; however they are lacking the format of the original report. Caution should be taken when reading/interpreti ng unformatted reports. Name: ? AUNG RUIZ ? Accession #: ? [id number] ? : ? 1965 (Age: 35) ??F ? Collect Date: ? 05/04/2001 ? Location: ? [facility] ? Receive Date: ? 05/05/2001 ? Provider: RAFY CONNELL MD Copy to: BETI MORALEZ MD ? Final Pathologic Diagnosis: ? Endocervix, curettage: 1. ?Fragments of benign endocervix. 2. ?Fragments of benign squamous epithelium. 3. ?Squamous metaplasia. ??See comment. Comment: ? Deeper levels have been examined. ??(Dr. Lester)/fabricio Document reviewed and electronically signed by: Kristina Tejada MD Report ??Date: 05/07/2001 16:09 By the signature above, the attending physician certifies that he/she has personally conducted a gross and/or microscopic examination of the described specimens and rendered or confirmed the above diagnosis. Specimen(s) Received: ? ECC Clinical History: ? 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 Received in formalin labelled Tyner and ECC is 0.75 cc of hobbs-red mucinous material. ??The specimen is entirely submitted in one cassette. ??(Juliocesar [facility])/fabricio End of Report [facility] 05/04/2001 05/05/2001 15: 42 EDT Rafy Connell MD PATHOLOGY ORDERABLES [facility] [address] [place] [address] documented in this encounter Visit Diagnoses Not on filedocumented in this encounter
--- OUTSIDE RECORDS SUMMARY | 2024-09-14 18:37 | XMS_ITS | Encounter Summary ---
Author Organization [facility] Address [address] [place] [address] Care Team Providers Care Healthcare Applications Analyst Name Role Phone Unavailable Primary Care Provider Unavailabl e Encounter Details Date Type Department Care Team (Late st Contact Info) Description 07/16/2009 Orders Only [facility] Laboratory Services - [facility] ([facility] [address] [place] [address] [phone] Leidy Calles NP Social History Tobacco Use Types Packs/Day Years Used Date Smoking Tobacco: Never Assessed Sex and Gender Information Value Date Recorded Sex Assigned at Not on file Gender Identity Not on file Sexual Orientation Not on file documented as of this encounter Plan of Treatment Not on file documented as of this encounter Procedures Procedure Name Priority Date/Time Associated Diagnosis Comments HPV DETECTION, HIGH RISK TYPES Routine 07/16/2009 20:17 EDT CYTOPATHOLOGY Routine 07/16/2009 0:00 EDT documented in this encounter Results * HUMAN PAPILLOMA VIRUS DNA TEST (07/16/2009 20:17 EDT) Specimen Description Cervix, ThinPrep vial [facility] Result Negative for HPV types 16, 18, 31, 33, 35, 39, 45, 51, 52, 56, 58, 59, and 68. [facility] Report Status Final 07/26/2009 [facility] 07/16/2009 20:1 7 EDT 07/24/2009 20:17 EDT Leidy Calles NP MICROBIOLOGY - GENER AL ORDERABLES [facility] [address] [place] [address] * CYTOPATHOLOGY (07/16/2009 0:00 EDT) Pathology Report: CYTOPATHOLOGY REPORT ? Reports generated via electronic interface contain original data; ? however they are lacking the format of the original report. ? Caution should be taken when reading/interpreti ng unformatted reports. ? Name: ? AUNG RUIZ ? Accession #: ? [id number] ? : ? 1965 (Age: 43) ??F ?Collect Date: ? 07/16/2009 ? Location: ? [facility] ? Receive Date: ? 07/17/2009 ? Provider: ?LEIDY M SHAY WAREHOUSE ENGINEER ? Copy to: ? Specimen/Source: ?Pap Test, Cervix/Endocervix, ThinPrep Imaging System ? with manual evaluation ? Last Menstrual Period: ? 6/19/09 ? 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 Treatment History: ? Cone biopsy: 1992, paps normal since ? Other: ? HPVDX - HPV testing requested regardless of diagnosis on current ThinPrep Pap ?? test. ? SPECIMEN ADEQUACY ? Satisfactory for Evaluation ? - transformation zone component present ? GENERAL CATEGORIZATION ? Negative for Intraepithelial Lesion or Malignancy ? Document reviewed and electronically signed by: ? Bryson Skelton, [place](ASCP) ? Report Date: ??07/24/2009 09:10 ? End of Report ? [facility] 07/16/2009 07/17/2009 Leidy Calles WAREHOUSE ENGINEER PATHOLOGY ORDERABLES [facility] [address] [place] [address] documented in this encounter Visit Diagnoses Not on filedocumented in this encounter
--- OUTSIDE RECORDS SUMMARY | 2024-09-14 18:37 | XMS_ITS | Encounter Summary ---
Author Organization [facility] Address [address] [place] [address] Care Team Providers Care Squeak Rattle And Leak Repairer Name Role Phone Unavailable Primary Care Provider Unavailabl e Encounter Details Date Type Department Care Team (Late st Contact Info) Description 01/09/2003 Results Only [facility] - Maple conversion [address] [place] [address] Rafy Connell MD [address] [place], [place] [id number] Social History Tobacco Use Types Packs/Day Years Used Date Smoking Tobacco: Never Assessed Sex and Gender Information Value Date Recorded Sex Assigned at Not on file Gender Identity Not on file Sexual Orientation Not on file documented as of this encounter Plan of Treatment Not on file documented as of this encounter Procedures Procedure Name Priority Date/Time Associated Diagnosis Comments SURGICAL PATHOLOGY Routine 01/09/2003 0:00 EST documented in this encounter Results * SURGICAL PATHOLOGY (01/09/2003 0:00 EST) Pathology Report: SURGICAL PATHOLOGY REPORT Reports generated via electronic interface contain original data; however they are lacking the format of the original report. Caution should be taken when reading/interpreti ng unformatted reports. Name: ? AUNG RUIZ ? Accession #: ? [id number] ? : ? 1965 (Age: 37) ??F ? Collect Date: ? 01/09/2003 ? Location: ? [facility] ? Receive Date: ? 01/09/2003 ? Provider: RAFY CONNELL MD Copy to: BETI GONZALEZ MD ? Final Pathologic Diagnosis: ? Endocervix, curettings: 1. ?Endocervical tissue and a fragment of squamous epithelium showing no significant histopathologic changes. 2. ?Fragment of inactive endometrium. Document reviewed and electronically signed by: MARQUES VALE MD Report ??Date: 01/10/2003 17:22 By the signature above, the attending physician certifies that he/she has personally conducted a gross and/or microscopic examination of the described specimens and rendered or confirmed the above diagnosis. Specimen(s) Received: ? Endocervical curettings Clinical History: ? Previous cervical dysplasia and stenosis, multiparity Gross Description: ? Received in formalin labelled Kayleigh and endocervical is a 0.7 x 0.2 x 0.2 cm aggregate of pink soft tissue admixed with mucus. ??Entirely submitted in one cassette. ??(Carlos Arreaga[place] [place] End of Report [facility] 01/09/2003 01/09/2003 14: 56 EST Rafy Connell MD PATHOLOGY ORDERABLES [facility] [address] [place] [address] documented in this encounter Visit Diagnoses Not on filedocumented in this encounter
--- OUTSIDE RECORDS SUMMARY | 2024-09-14 18:37 | XMS_ITS | Encounter Summary ---
Author Organization [facility] Address [address] [place] [address] Care Team Providers Care Legal Research Analyst Name Role Phone Unavailable Primary Care Provider Unavailabl e Encounter Details Date Type Department Care Team (Late st Contact Info) Description 08/19/2007 Results Only [facility] - Maple conversion [address] [place] [address] Christina Limon, [facility] [address] [place] [address] [place] [address] Social History Tobacco Use Types [...] Priority Date/Time Associated Diagnosis Comments CYTOPATHOLOGY Routine 08/19/2007 0:00 EDT documented in this encounter Results * CYTOPATHOLOGY (08/19/2007 0:00 EDT) Pathology Report: CYTOPATHOLOGY REPORT Reports generated via electronic interface contain original data; however they are lacking the format of the original report. Caution should be taken when reading/interpreti ng unformatted reports. Name: ? AUNG RUIZ ? Accession #: ? [id number] : ? 1965 (Age: 41) ??F ?Collect Date: ? 08/19/2007 Location: ? [facility] ? Receive Date: ? 08/20/2007 Provider: ?CHRITSINA LIMON BATH STEWARD/STEWARDESS Copy to: ? Specimen/Source: ?ThinPrep Pap Test, Cervix/Endocervix, processed on [facility] ThinPrep Imaging System, with manual evaluation Last Menstrual Period: ? 08/06/07 Previous Gynecologic Pathology: ? ROGELIO: ? 92 Treatment History: ? Cone biopsy: dysplasia ? 92 Miscellaneous treatment: Normal endocervical currettings Other: ? Additional clinical information: Normal pap HPVA - HPV testing requested if ASC-US on the current ThinPrep Pap test. ? SPECIMEN ADEQUACY ? Satisfactory for Evaluation - transformation zone component absent GENERAL CATEGORIZATION ? Negative for Intraepithelial Lesion or Malignancy ? Document reviewed and electronically signed by: ? XOCHILT Maxwell(ASCP) ? Report Date: ??08/25/2007 15:23 End of Report [facility] 08/19/2007 08/20/2007 Christina Limon BATH STEWARD/STEWARDESS PATHOLOGY ORDERABLES [facility] [address] [place] [address] documented in this encounter Visit Diagnoses Not on filedocumented in this encounter
--- OUTSIDE RECORDS SUMMARY | 2024-09-14 18:37 | XMS_ITS | Encounter Summary ---
Author Organization [facility] Address [address] [place] [address] Care Team Providers Care Solar Designer/Installer Name Role Phone Abdifatah Ritter Primary Care Provider +1- [phone] Encounter Details Date Type Department Care Team (Late st Contact Info) Description 06/15/2018 Results Only [facility] [phone] Anuel Mendez MD [address] [place] [address] Social History Tobacco Use Types Packs/Day Years [...] Diagnosis Comments PAP TEST- RESULT ONLY Routine 06/15/2018 0:00 EDT documented in this encounter Results * PAP TEST- RESULT ONLY (06/15/2018 0:00 EDT) Pathology Report: CYTOPATHOLOGY REPORT Reports generated via electronic interface contain original data; however they are lacking the format of the original report. Caution should be taken when reading/interpreti ng unformatted reports. Name: ? AUNG RUIZ ? Accession #: ? [id number] ? : ? 1965 (Age: 52) ??F ?Collect Date: ? 06/15/2018 ? Location: ? [facility] ? Receive Date: ? 06/16/2018 ? Provider: ANUEL MENDEZ MD Copy to: ABDIFATAH RITTER DO ? Final Report SPECIMEN ADEQUACY ? Satisfactory for Evaluation - transformation zone component absent GENERAL CATEGORIZATION ? Negative for Intraepithelial Lesion or Malignancy ?? Menstrual/Pregnanc y Status: ??Post Menopausal Previous Gynecologic Pathology: HSIL: Hx HGSIL Treatment History: Cone biopsy Specimen/Source: ??Pap Test, Cervix/Endocervix, ThinPrep Imaging System with manual evaluation Document reviewed and electronically signed by: ? Tila Chavez, CT(ASCP) ? Report ??Date: 06/25/2018 12:11 HPV with Pap Test ? Date Ordered: ? 06/25/2018 ? Status: ?? Signed Out ?Date Complete: ? 06/28/2018 ? By: ??System Interface ? Date Reported: ? 06/28/2018 ? Interpretation RESULT: Negative for HPV. No E6 or E7 mRNA is detected from HPV types 16,18,31,33,35, 39,45,51,52,56,58, 59,66, and 68 by furniture packer mediated amplification. Comments Document reviewed and electronically signed by: ? System Interface ? Report date: 06/28/2018 By the signature above, the attending physician certifies that he/she has personally conducted a gross and/or microscopic examination of the described specimens and rendered or confirmed the above diagnosis. End of Report [facility] 06/15/2018 06/16/2018 Anuel Mendez MD PATHOLOGY ORDERABLES [facility] [address] [place] [address] documented in this encounter Visit Diagnoses Not on filedocumented in this encounter Care Teams Solar Designer/Installer Relationship Specialty Start Date End Date Abdifatah Ritter DO [address] [place] [address] [phone] PCP - General 07/09/17 documented as of this encounter
--- OUTSIDE RECORDS SUMMARY | 2024-09-14 18:37 | XMS_ITS | Referral Summary ---
Author Organization [facility] Address [address] [place] [address] Care Team Providers Care Director [employer]eron[employer] Name Role Phone Abdifatah Ritter DO Primary Care Provider +1- [phone] Social History Tobacco Use Types Packs/Day Years Used Date Smoking Tobacco: Never Assessed Interpersonal Safety Answer Date Record ed Physically Hurt Never 06/24/2020 Verbally Threaten Not on file 06/24/2020 Sex and Gender Information Value Date Recorded Sex Assigned at Not on file Gender Identity Not on file Sexual Orientation Not on file Plan of Treatment Not on file Procedures Procedure Name Priority Date/Time Associated Diagnosis Comments HEPATITIS C AB W REFLEX TO HCV RNA BY PCR Routine 09/09/2022 12:27 EDT from Last 3 Months or Most Recently Relevant to Health Maintenance Results * HEPATITIS C AB W REFLEX TO HCV RNA BY PCR (09/09/2022 12:27 EDT) Hep C Antibody Negative Negative 09/10/2022 9:21 EDT [facility] Blood VENOUS BLOOD / Unknown 09/09/2022 12:27 EDT 09/09/2022 21:47 EDT Provider Outr Resulting Lab CHEMISTRY & BLOOD GAS ORDERABLES [facility] [address] [place] [address] from Last 3 Months or Most Recently Relevant to Health Maintenance Care Teams Director [employer]eron[employer] Commission Relationship Specialty Start Date End Date Abdifatah Ritter DO [address] [place] [address] PCP - General 07/09/17
--- OUTSIDE RECORDS SUMMARY | 2024-09-14 18:37 | XMS_ITS | Clinical Summary ---
Author Organization [facility] Address [address] [place] [address] Care Team Providers Care Printing Shop Supervisor Name Role Phone Abdifatah Ritter DO Primary Care Provider +1- [phone] Social History Tobacco Use Types Packs/Day Years Used Date Smoking Tobacco: Never Assessed Interpersonal Safety Answer Date Record ed Physically Hurt Never 06/24/2020 Verbally Threaten Not on file 06/24/2020 Sex and Gender Information Value Date Recorded Sex Assigned at Not on file Gender Identity Not on file Sexual Orientation Not on file Plan of Treatment Health Maintenance Due Date Last Done Comments Hepatitis B Vaccine (1 of 3 - 19+ 3-dose series) 11/20 COVID-19 Vaccine (2022- season) 2023 Hepatitis C Screen Completed 09/09/2022 Procedures Procedure Name Priority Date/Time Associated Diagnosis Comments HEPATITIS C AB W REFLEX TO HCV RNA BY PCR Routine 09/09/2022 12:27 EDT from Last 3 Months or Most Recently Relevant to Health Maintenance Results * HEPATITIS C AB W REFLEX TO HCV RNA BY PCR (09/09/2022 12:27 EDT) Hep C Antibody Negative Negative 09/10/2022 9:21 EDT [facility] Blood VENOUS BLOOD / Unknown 09/09/2022 12:27 EDT 09/09/2022 21:47 EDT Provider Outr Resulting Lab CHEMISTRY & BLOOD GAS ORDERABLES [facility] [address] [place] [address] from Last 3 Months or Most Recently Relevant to Health Maintenance Care Teams Printing Shop Supervisor Relationship Specialty Start Date End Date Abdifatah Ritter DO [address] [place] [address] PCP - General 07/09/17
--- OUTSIDE RECORDS SUMMARY | 2024-09-14 18:37 | XMS_ITS | Encounter Summary ---
Author Organization [facility] Address [address] [place] [address] Care Team Providers Care Netbackup Engineer Name Role Phone Unavailable Primary Care Provider Unavailabl e Encounter Details Date Type Department Care Team (Late st Contact Info) Description 06/15/2014 Results Only [facility] Laboratory Services - [facility] ([facility]) [address] [place] [phone] Leidy Calles, SOM Social History Tobacco Use [...] Date/Time Associated Diagnosis Comments SURGICAL PATHOLOGY Routine 06/15/2014 9:28 EDT documented in this encounter Results * SURGICAL PATHOLOGY (06/15/2014 9:28 EDT) Pathology Report: SURGICAL PATHOLOGY REPORT Reports generated via electronic interface contain original data; however they are lacking the format of the original report. Caution should be taken when reading/interpreti ng unformatted reports. Name: ? AUNG RUIZ ? Accession #: ? [id number] ? : ? 1965 (Age: 48) ??F ? Collect Date: ? 06/15/2014 ? Location: ? [facility] ? Receive Date: ? 06/16/2014 ? Provider: ELIZABETH SIMS MD Copy to: BETI RAZA DO ? Final Pathologic Diagnosis: ENDOMETRIUM, ENDOMETRIAL CURETTAGE: - ??Inactive endometrium with tubal metaplasia and focal breakdown changes. - ??Fragments of benign endocervical glands and stroma. - ??Fragments of benign squamous epithelium. Document reviewed and electronically signed by: CASSIUS GUSMAN MD Report ??Date: 06/20/2014 14:56 By the signature above, the attending physician certifies that he/she has personally conducted a gross and/or microscopic examination of the described specimens and rendered or confirmed the above diagnosis. Specimen(s) Received: Endometrial curettings Clinical History: Post menopausal bleeding Gross Description: ? Received in formalin labelled with proper patient identification (initials G, R) and endometrial curettings is an aggregate of clotted blood and red-brown tissue (1.5 x 1.0 x 0.3 cm). Submitted in toto in block 1. Kate Billings 06/16/2014 09:55 AM End of Report [facility] 06/15/2014 9:28 EDT 06/16/2014 9:28 EDT Elizabeth Sims MD PATHOLOGY ORDERABLES [facility] [address] [place] [address] documented in this encounter Visit Diagnoses Not on filedocumented in this encounter
--- OUTSIDE RECORDS SUMMARY | 2024-09-14 18:37 | XMS_ITS | Encounter Summary ---
Author Organization [facility] Address [address] [place] [address] Care Team Providers Care Document Control Manager Name Role Phone Unavailable Primary Care Provider Unavailabl e Encounter Details Date Type Department Care Team (Latest Contact Info) Description 06/15/2014 9:58 EDT - 06/15/2014 23:59 EDT Hospital Encounter [address] [address] Unknown, Provider, Discharge Disposition: Home or Self Care Social History Tobacco Use Types Packs/Day Years Used Date Smoking Tobacco: Never Assessed Sex and Gender Information Value Date Recorded Sex Assigned at Not on file Gender Identity Not on file Sexual Orientation Not on file documented as of this encounter Discharge Disposition Disposition Code Departure Means Destination Home or Self Half-Way documented in this encounter Plan of Treatment Not on file documented as of this encounter Visit Diagnoses Not on filedocumented in this encounter
--- OUTSIDE RECORDS SUMMARY | 2024-09-14 18:37 | XMS_ITS | Encounter Summary ---
Author Organization [facility] Address [address] [place] [address] Care Team Providers Care Life Assurance Representative Name Role Phone Abdifatah Ritter DO Primary Care Provider +1- [phone] Encounter Details Date Type Department Care Team (Late st Contact Info) Description 09/09/2022 Lab Requisition [facility]ology & [facility] [address] [place], [place] [address] Outr Resulting Lab, Provider Social History Tobacco [...] Procedure Name Priority Date/Time Associated Diagnosis Comments HIV 1/2 ANTIGEN AND ANTIBODY, 4TH GENERATION Routine 09/09/2022 12:27 EDT documented in this encounter Results * HIV 1/2 ANTIGEN AND ANTIBODY, 4TH GENERATION (09/09/2022 12:27 EDT) HIV 1 and 2 Antibody/p24 Antigen, 4th Generation Negative Negative 09/10/2022 9:19 EDT [facility] Comment:If acute HIV-1 infec tion is suspected in a high risk patient, submit plasma specimen for HIV-1 RNA quantitation test. Blood VENOUS BLOOD / Unknown 09/09/2022 12:27 EDT 09/09/2022 21:47 EDT Narrative [facility] - 09/10/2022 9:19 EDT Fourth Generation assay performed on the Siem[employer] XPT. Provider Outr Resulting Lab IMMUNOLOGY A ND SEROLOGY ORDERABLES [facility] [address] [place] [address] documented in this encounter Visit Diagnoses Not on filedocumented in this encounter Care Teams Life Assurance Representative Relationship Specialty Start Date End Date Abdifatah Ritter DO [address] [place] [address] PCP - General 07/09/17 documented as of this encounter
--- OUTSIDE RECORDS SUMMARY | 2024-09-14 18:37 | XMS_ITS | Encounter Summary ---
Author Organization [facility] Address [address] [place] [address] Care Team Providers Care Sugar Reprocess Operator Head Name Role Phone Stone Abdifatah Jorden Primary Care Provider [phone]- [phone] Encounter Details Date Type Department Care Team (Late st Contact Info) Description 02/02/2024 Lab Requisition [facility] Pathology & Laboratory Medicine - [facility] [address] [place] [address] Cata Albarran, IT SUPPORT ANALYST [address] [place] [id number] Encounter for other general examination Social History Tobacco Use Types Packs/Day Years [...] Name Priority Date/Time Associated Diagnosis Comments PAP TEST Today 02/01/2024 13:30 EDT Encounter for other general examination HPV DNA DETECTION WITH GENOTYPING, PCR Today 02/01/2024 13:30 EDT Encounter for other general examination documented in this encounter Results * HUMAN PAPILLOMAVIRUS (HPV) DETECTION-HIGH RISK TYPES (02/01/2024 13:30 EDT) HPV other High Risk types, PCR Negative Negative 02/05/2024 14:19 EDT [facility] Comment:No E6 or E7 mRNA is detected from HPV types 16,18,31,33,35,39,45,51,52,56,58,59,66, and 68 by modern greek studies professor mediated amplification. Pap Test CERVIX UTERI STRUCTURE / Unknown 02/01/2024 13:30 EDT 02/04/2024 15:22 EDT Cata Albarran APRN MICROBIOLOGY - GE NERAL ORDERABLES [facility] [address] [place], [place] [id number] * PAP TEST (02/01/2024 13:30 EDT) Specimens A. Cervix and/or Endocervix , ThinPrep Imaging System with Manual Evaluation 02/05/2024 14:19 [facility] Specimen Adequacy Satisfactory for Evaluation - transformation zone component absent 02/05/2024 14:19 [facility] General Categorization Negative for intraepithelial lesion or malignancy 02/05/2024 14:19 [facility] Attestation . 02/05/2024 14:19 [facility] at 1419 Clinical History SEE BELOW 02/05/20 14:19 [facility] HPV The result for the Human Papillomavirus (HPV) Detection-High Risk Types is Negative. No E6 or E7 mRNA is detected from HPV types 16,18,31,33,35,39 ,45,51,52,56,58,5 9,66, and 68 by modern greek studies professor mediated amplification.Jaja ting was performed on specimen [id number] and was resulted on 02/05/2024 1419 EDT by KENNY, LAB INSTRUMENT RESULTS IN 02/05/2024 14:19 [facility] Performing Lab [facility] 02/05/2024 14:19 [facility] Scanned Images 02/05/2024 14:19 [facility] Pap Test CERVIX UTERI STRUCTURE / Unknown 02/01/2024 13:30 EDT 02/02/2024 12:44 EDT Cata Albarran APRN PATHOLOGY ORDERAB LES [facility] [address] [place], [place] [phone] documented in this encounter Visit Diagnoses Diagnosis Encounter for other general examination documented in this encounter Care Teams Sugar Reprocess Operator Head Relationship Specialty Start Date End Date Abdifatah Ritter DO [address] [place], [place] [id number] PCP - General 07/09/17 documented as of this encounter
--- OUTSIDE RECORDS SUMMARY | 2024-09-14 18:37 | XMS_ITS | Encounter Summary ---
Author Organization [facility] Address [address] [place] [address] Care Team Providers Care Cardiac Tech Name Role Phone StoneAbdifatah sky Primary Care Provider [phone]- [phone] Encounter Details Date Type Department Care Team (Late st Contact Info) Description 12/13/2019 Lab Requisition [facility] Pathology & Laboratory Medicine - [address] [address] Claribel Guallpa MD [address] [place] [address] [address] [place], [place] [phone] Encounter for other general examination Social History [...] Priority Date/Time Associated Diagnosis Comments SURGICAL PATHOLOGY Today 12/12/2019 12 :05 EST Encounter for other general examination documented in this encounter Results * SURGICAL PATHOLOGY (12/12/2019 12:05 EST) Final Diagnosis A. COLON, CECUM, POLYP, BIOPSY: - Colonic mucosa with hyperplastic surface change. - Deeper sections have been reviewed. 12/14/2019 17:53 EST [facility] at 1753 Clinical History Colon cancer screening. 12/14/2019 17:53 EST [facility] Attestation By the signature below, the attending physician certifies that they have personally conducted a gross and/or microscopic examination of the described specimens and rendered or confirmed the above diagnosis. 12/14/2019 17:53 EST [facility] at 1753 Gross Description A. Received in formalin labelled with proper patient identification (initials G, R) and cecal polyp are two soft hobbs-yellow tissues (0.1 x 0.1 x 0.1 cm and 0.4 x 0.1 x 0.1 cm). Entirely submitted in A1. MIHRAB ALI 12/13/2019 08:30 12/14/2019 17:53 EST [facility] Scanned Images 12/14/2019 17:53 EST [facility] Tissue CECUM STRUCTURE / Unknown 12/12/2019 12:05 EST 12/13/2019 8:24 EST Claribel Guallpa MD PATHOLOGY [facility] [address] [place] [address] documented in this encounter Visit Diagnoses Diagnosis Encounter for other general examination documented in this encounter Care Teams Cardiac Tech Relationship Specialty Start Date End Date Abdifatah Ritter DO [address] [place] [address] PCP - General 07/09/17 documented as of this encounter
--- OUTSIDE RECORDS SUMMARY | 2024-09-14 18:37 | XMS_ITS | Encounter Summary ---
Author Organization [facility] Address [address] [place] [address] Care Team Providers Care Packer Fuser Name Role Phone Griselda Mendez MD Primary Care Provider [phone] Encounter Details Date Type Department Care Team (Late st Contact Info) Description 07/07/2017 Results Only [facility] [phone] Abdifatah Ritter, DO [address] [place], [place] [address] Social History Tobacco Use Types Packs/Day Years Used Date Smoking Tobacco: Never Assessed Sex and Gender Information Value Date Recorded Sex Assigned at Not on file Gender Identity Not on file Sexual Orientation Not on file documented as of this encounter Plan of Treatment Not on file documented as of this encounter Procedures Procedure Name Priority Date/Time Associated Diagnosis Comments SURGICAL PATHOLOGY Routine 07/07/2017 19 :51 EDT documented in this encounter Results * SURGICAL PATHOLOGY (07/07/2017 19:51 EDT) Pathology Report: SURGICAL PATHOLOGY REPORT Reports generated via electronic interface contain original data; however they are lacking the format of the original report. Caution should be taken when reading/interpret ing unformatted reports. Name: ? AUNG RUIZ ? Accession #: ? [id number] ? : ? 1965 (Age: 51) ??F ? Collect Date: ? 07/07/2017 ? Location: ? [facility] ? Receive Date: ? 07/07/2017 ? Provider: ABDIFATAH RITTER DO Copy to: ? Final Pathologic Diagnosis: SKIN OF TEMPORAL REGION, LEFT, PUNCH BIOPSY: - Melanocytic nevus, intradermal type. - Lesion extends to biopsy edge and base. ?? Document reviewed and electronically signed by: EMERALD AN MD Report ??Date: 07/08/2017 17:08 By the signature above, the attending physician certifies that he/she has personally conducted a gross and/or microscopic examination of the described specimens and rendered or confirmed the above diagnosis. Specimen(s) Received: 2.0 mm punch L temporal Clinical History: Atypical nevus Gross Description: ? Received in formalin labelled with proper patient identification (initials G, R) and L head is a punch biopsy of hobbs-pink pearly skin (0.2 cm diameter x 0.1 cm in thickness). The specimen is submitted entirely in 1. FELICE Dixon (ASCP) 07/08/2017 7:56 AM End of Report [facility] 07/07/2017 19:5 1 EDT 07/07/2017 19:51 EDT Abdifatah Ritter DO PATHOLOGY ORDERABL ES [facility] [address] [place] [address] documented in this encounter Visit Diagnoses Not on filedocumented in this encounter Care Teams Packer Fuser Relationship Specialty Start Date End Date Griselda Mendez MD [address] [place], [place] [id number] PCP - General 06/21/14 07/08/17 documented as of this encounter
--- OUTSIDE RECORDS SUMMARY | 2024-09-14 18:37 | XMS_ITS | Encounter Summary ---
Author Organization [facility] Address [address] [place] [address] Care Team Providers Care Cable Placer Name Role Phone Unavailable Primary Care Provider Unavailabl e Encounter Details Date Type Department Care Team (Late st Contact Info) Description 05/13/2006 Results Only [facility] [address] [place] [address] Leidy Calles, SOM Social History Tobacco Use [...] Priority Date/Time Associated Diagnosis Comments CYTOPATHOLOGY Routine 05/13/2006 0:00 EDT documented in this encounter Results * CYTOPATHOLOGY (05/13/2006 0:00 EDT) Pathology Report: CYTOPATHOLOGY REPORT Reports generated via electronic interface contain original data; however they are lacking the format of the original report. Caution should be taken when reading/interpreti ng unformatted reports. Name: ? AUNG RUIZ ? Accession #: ? [id number] : ? 1965 (Age: 40) ??F ?Collect Date: ? 05/13/2006 Location: ? [facility] ? Receive Date: ? 05/14/2006 Provider: ?LEIDY CALLES ADMIN SECRETARY Copy to: ? Specimen/Source: ?ThinPrep Pap Test, Cervix/Endocervix, processed on [employer] ThinPrep Imaging System, with manual evaluation Last Menstrual Period: ? 05/08/06 Previous Gynecologic Pathology: ? LSIL: No T Zone Treatment History: ? Cone biopsy Other: ? HPVA - HPV testing requested if ASC-US on the current ThinPrep Pap test. ? SPECIMEN ADEQUACY ? Satisfactory for Evaluation - transformation zone component absent GENERAL CATEGORIZATION ? Negative for Intraepithelial Lesion or Malignancy ? Document reviewed and electronically signed by: ? Radha Silva, LUANN(ASCP)(IAC) ? Report Date: ??05/18/2006 16:34 End of Report [facility] 05/13/2006 05/14/2006 Leidy Calles NP PATHOLOGY ORDERABLES Performing Organization Address City/State/[facility] Co de Phone Number [facility] [address] [place] [address] documented in this encounter Visit Diagnoses Not on filedocumented in this encounter
--- OUTSIDE RECORDS SUMMARY | 2024-09-14 18:37 | XMS_ITS | Encounter Summary ---
Author Organization [facility] Address [address] [place] [address] Care Team Providers Care Senior Branch Manager Name Role Phone Unavailable Primary Care Provider Unavailabl e Encounter Details Date Type Department Care Team (Late st Contact Info) Description 01/06/2000 Results Only [facility] - Maple conversion [address] [place] [address] Kye Hwang MD [address] [place] [phone] Social History Tobacco Use Types Packs/Day Years Used Date Smoking Tobacco: Never Assessed Sex and Gender Information Value Date Recorded Sex Assigned at Not on file Gender Identity Not on file Sexual Orientation Not on file documented as of this encounter Plan of Treatment Not on file documented as of this encounter Procedures Procedure Name Priority Date/Time Associated Diagnosis Comments CYTOPATHOLOGY Routine 01/06/2000 12:04 EST documented in this encounter Results * CYTOPATHOLOGY (01/06/2000 12:04 EST) Pathology Report: CYTOPATHOLOGY REPORT Reports generated via electronic interface contain original data; however they are lacking the format of the original report. Caution should be taken when reading/interpreti ng unformatted reports. Name: ? AUNG RUIZ ? Accession #: ? [id number] : ? 1965 (Age: 34) ??F ?Collect Date: ? 01/06/2000 Location: ?Receive Date: ? 01/06/2000 Provider: ?KYE HWANG MD Copy to: ?KYE HWANG MD ? Specimen/Source: ?[employer] Machine Operator Helper ThinPrep Last Menstrual Period: ? GYNECOLOGIC ??CYTOPATHOLOGY ??REPORT Name: AUNG RUIZ Arturo ?[facility] : 1965 ?? 34Y F ?Client ID: [id number] SS#: [id number] ? Clinician: KYE HWANG MD ?? Location: [facility] ??Copy to: ?? Specimen: ?Grid Casting Machine Operator Helper ThinPrep ? Source: Cervix/Endocervix ?Collected: 01/02/00 ? Received: 01/06/2000 ?LMP: 12/21/99 ? Hormone Therapy: Yes ? : No ? Radiation Therapy: No ?? Post : No ?Chemotherapy: No ?IUD: No ? Prev Abnormal Pap: Yes ?? Clinical Hx: Control Pills ?(Blank sahni indicate information not provided on requisition) SPECIMEN ADEQUACY: ? Satisfactory But Limited By ? Absence Of A Transformation Zone Component ?? GENERAL CATEGORIZATION: ? BENIGN CELLULAR CHANGES ?? 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 Reviewed And Electronically Signed By: ? Ruben Reynoso M.D. ? Report Date: ?? 01/14/2000 [employer] Archived Tests - Final Diagnosis Text Field: Clinical History : Control Pills ? Document reviewed and electronically signed by: ? Conversion ? Report Date: ??01/14/2000 00:00 End of Report [facility] 01/06/2000 12:0 4 EST 01/06/2000 12:05 EST Kye Hwang MD PATHOLOGY ORDERABLES Performing Organization Address City/State/[facility] Co de Phone Number [facility] [address] [place] [address] documented in this encounter Visit Diagnoses Not on filedocumented in this encounter
--- OUTSIDE RECORDS SUMMARY | 2024-09-14 18:37 | XMS_ITS | Encounter Summary ---
Author Organization [facility] Address [address] [place] [address] Care Team Providers Care E Commerce Marketing Manager Name Role Phone Griselda Mendez MD Primary Care Provider [phone] Encounter Details Date Type Department Care Team (Latest Contact Info) Description 07/07/2017 8:41 EDT - 07/07/2017 23:59 EDT Hospital Encounter [address] [address] Unknown, Provider, Discharge Disposition: Home or Self [...] on filedocumented in this encounter Care Teams E Commerce Marketing Manager Relationship Specialty Start Date End Date Griselda Mendez MD [address] [place] [address] PCP - General 06/21/14 07/08/17 documented as of this encounter
[2024-09-14 21:00] LABS: Bacteria Moderate HPF (Negative); C & S Indicated? C&S Done As Ordered; Crystals Negative HPF (Negative); Epithelial Cells Few HPF (Negative); Mucus Moderate (Negative); RBC 0-2 HPF (0-2); WBC >50 HPF (0-5)
== END 2024-09-14 18:34 | disposition home or self-care (01) ==
LOC: LBN 18:33
PROVIDERS: PCP Nurse Practitioner Family; Visit Provider Physician Assistant Medical
DX: R35.0 Frequency of micturition (principal)
CPT/HCPCS: 87077; 81015; 87086; 87186

== ENCOUNTER 2025-02-17 01:01 | Outpatient (CLI) | payer BC, SELFPAY ==
[2025-02-17 07:48] LABS: HCT 41.8 % (36.0-46.0); HGB 13.8 g/dL (11.2-15.7); MCH 28.9 pg (27.0-33.0); MCV 87 fL (80-95); Platelet Count 290 10^3/uL (130-400); RBC 4.78 10^6/uL (3.93-5.22); RDW 11.9 % (11.7-14.6); RDW-SD 38.7 fL; WBC 6.94 10^3/uL (4.4-10.8)
[2025-02-17 07:55] LABS: Hemoglobin A1C 6.3 % (<5.7)
[2025-02-17 08:07] LABS: ALT 35 U/L (14-59); AST 19 U/L (15-37); Albumin 3.9 g/dL (3.4-5.0); Alkaline Phosphatase 75 U/L (46-116); Anion Gap 8.5 mmol/L (3-11); BUN 14 mg/dL (7-18); Bilirubin, Total 0.5 mg/dL (0.2-1.0); CO2 29.5 mmol/L (21.0-32.0); CREATININE 0.7 mg/dL (0.55-1.02); Calcium 9.5 mg/dL (8.5-10.1); Calculated LDL 87 mg/dL (<100); Chloride 106 mmol/L (98-107); Cholesterol 167 mg/dL (<200); Estimated GFR 100.19 (mL/min/1.73m2); Glucose 125 mg/dL (74-106); HDL Cholesterol 51 mg/dL (>or=50); Potassium 4.4 mmol/L (3.5-5.1); Sodium 144 mmol/L (136-145); TSH (W/Ref FT4) 2.33 uIU/mL (0.36-3.74); Total Protein 7.7 g/dL (6.4-8.2); Triglyceride 145 mg/dL (<150)
== END 2025-02-17 01:02 | disposition home or self-care (01) ==
PROVIDERS: PCP Nurse Practitioner Family; Visit Provider Nurse Practitioner Family
DX: I10 Essential (primary) hypertension; E78.5 Hyperlipidemia, unspecified; R73.03 Prediabetes; E66.9 Obesity, unspecified
CPT/HCPCS: 36415; 80053; 80061; 85027; 83036; 84443